=== PATIENT | female | born 1980 | race Caucasian/White ===

== ENCOUNTER 2020-04-16 14:36 | Emergency (ER) | payer BC, OTHER ==
[~2020-04-16] VITALS: Ht 170.2 cm; Wt 102.3 kg
[~2020-04-16 14:36] MED LIST: ONDA4TAB12 PO
[2020-04-16 15:24] VITALS: BP 115/72
== END 2020-04-16 15:52 | disposition home or self-care (01) ==
LOC: ER 14:36
DX: R11.2 Nausea with vomiting, unspecified (principal); Z20.828 Contact with and (suspected) exposure to other viral communicable diseases; R19.7 Diarrhea, unspecified; E03.9 Hypothyroidism, unspecified; Z90.89 Acquired absence of other organs; Z88.1 Allergy status to other antibiotic agents; Z79.899 Other long term (current) drug therapy
CPT/HCPCS: 36415; 87635; 99283